=== PATIENT | female | born 1995 | race Caucasian/White ===

== ENCOUNTER 2016-11-05 17:00 | Inpatient (IN) | payer OTHER ==
[~2016-11-05] VITALS: Ht 165.1 cm; Wt 59.0 kg
--- NOTE | ~2016-11-05 | PN ---
Unit #: [id number] #: [id number] Patient: LASHAWN BLOCK [id number] [facility] [address] [place] [address] [id number] MR#: [id number] NAME: LASHAWN BLOCK ROOM: P202 Age: 21 Sex: F Admission Date: 11/05/2016 : 1995 Attending Physician: Alma Garay M.D. Admitting Physician: Alma Garay M.D. Primary Care Physician: Primary Care Physician Gillian PEREZ NOTES DATE OF SERVICE: 11/09/2016 SUBJECTIVE Ms. Block is a 21-year-old white female, who was seen today and chart was reviewed and the case was discussed with the staff. She has been anxious, withdrawn, and rather seclusive to herself. Meanwhile, she has been cooperative with the treatment recommendations and has been taking the medications and tolerating them fairly well. MENTAL STATUS EXAMINATION Young white female, who was casually dressed with fair personal hygiene, appears to be in no acute distress or discomfort. She was awake and alert on interaction with intact orientation. Her mood was anxious with a congruent affect. She denies any suicidal or homicidal ideations. Her insight and judgment remain slightly impaired. TREATMENT PLAN 1. We will continue her on her current medications and treatment protocol. We will monitor her response to the medications and make further adjustments as needed. 2. We will continue to follow up. Dictated by... Ronnie Rojo/molly TD: 11/09/2016 12:44 JOB #: [id number] [facility] PROGRESS NOTES Page 1 of 1 X Alma Garay MD PROGRESS NOTE
--- NOTE | ~2016-11-05 | DS ---
Unit #: [id number] #: [id number] Patient: LASHAWN BLOCK [id number] [facility] [address] [place] [address] [id number] MR#: [id number] NAME: LASHAWN BLOCK ROOM: P202 Age: 21 Sex: F Admission Date: 11/05/2016 : 1995 Discharge Date: 11/10/2016 Attending Physician: Alma Garay M.D. Primary Care Physician: Primary Care Physician No DISCHARGE SUMMARY IDENTIFYING DATA Ms. Block is a 21-year-old white female, with diagnosed with mood disorder and substance abuse who is well known to me from previous multiple encounters who was self-referred to the program. HISTORY OF PRESENT ILLNESS Please see initial psychiatric evaluation for details. PAST PSYCHIATRIC HISTORY Please see initial psychiatric evaluation for details. PAST MEDICAL HISTORY Please see initial psychiatric evaluation for details. HOSPITAL COURSE The patient was admitted to the Adult Chemical Dependency Psychiatric Unit at [facility] shanika Chawla and oriented to the hospital environment. The patient was placed back on her home medications and detox protocol, initiated as well, she was closely monitored. The patient was taking medications and tolerating them fairly well with no reported side effects and showed a therapeutic response and no medication side effects, and was able to come out of the detox without any complications, and was willing to continue treatment on outpatient basis. The patient was discharged home and will continue treatment on an outpatient basis. DISCHARGE DIAGNOSES PSYCHIATRIC: [place] I Bipolar disorder, most recent episode depressed, moderate, recurrent without psychotic features. Opiate dependence, in acute withdrawal. [place] II [place] III None. [place] IV Moderate psychosocial stressors. [place] V CONDITION AT DISCHARGE Stable. PROGNOSIS Fair. Unit #: [id number] #: [id number] Patient: LASHAWN BLOCK Dictated by... Ronnie Rojo/cisco TD: 11/30/2016 11:41 JOB #: [id number] DISCHARGE SUMMARY Page 1 of 1 X Alma Garay MD DISCHARGE SUMMARY
--- NOTE | ~2016-11-05 | PN ---
Unit #: [id number] #: [id number] Patient: LASHAWN BLOCK [id number] [facility] [address] [place] [address] [id number] MR#: [id number] NAME: LASHAWN BLOCK ROOM: P202 Age: 21 Sex: F Admission Date: 11/05/2016 : 1995 Attending Physician: Alma Garay M.D. Admitting Physician: Alma Garay M.D. Primary Care Physician: Primary Care Physician Gillian PEREZ NOTES DATE November 07, 2016 DISCUSSION Ms. Block is a 21-year-old white female, who was seen today and chart was reviewed and the case was discussed with the staff. The patient has been anxious, withdrawn, and rather seclusive to herself and appears to be in distress and discomfort as she has been going through the detox. She has been cooperative with the treatment recommendations, and has been taking the medications and tolerating them fairly well with no reported side effects. MENTAL STATUS EXAMINATION Young white female, who was casually dressed with fair personal hygiene and appears to be in no acute distress or discomfort. She was awake and alert with impaired attention and concentration. Her mood was anxious with a congruent affect. She denies any suicidal or homicidal ideations, and also denies any auditory or visual hallucinations. Her insight and judgment remain slightly impaired. TREATMENT PLAN 1. We will continue her on her current medications and treatment protocol, and will monitor her response to the medications, and make further adjustments as needed. 2. We will continue to followup. Dictated by... Ronnie Rojo/cisco TD: 11/08/2016 08:14 JOB #: [id number] Unit #: [id number] #: [id number] Patient: LASHAWN BLOCK CHRIS NOTES Page 1 of 1 X Alma Garay MD PROGRESS NOTE
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
--- NOTE | ~2016-11-05 | PN ---
Unit #: [id number] #: [id number] Patient: LASHAWN BLOCK [id number] [facility] [address] [place] [address] [id number] MR#: [id number] NAME: LASHAWN BLOCK ROOM: P202 Age: 21 Sex: F Admission Date: 11/05/2016 : 1995 Attending Physician: Alma Garay M.D. Admitting Physician: Alma Garay M.D. Primary Care Physician: Primary Care Physician Gillian RIVERS PROGRESS NOTES DATE 11/08/2016 DISCUSSION Ms. Block is a 21-year-old white female who was seen today and chart was reviewed and case was discussed with the staff. She has been anxious, withdrawn and rather seclusive to herself. Meanwhile, she has been cooperative with treatment recommendations and has been taking the medications and tolerating them fairly well with no reported side effects. MENTAL STATUS EXAMINATION Young white female who was casually dressed with fair personal hygiene and appears to be in no acute distress or discomfort. She was awake and alert with impaired attention and concentration. Her mood was anxious with congruent affect. She denies any suicidal or homicidal ideations. Her insight and judgement remains slightly impaired. TREATMENT PLAN 1. Will continue on current treatment protocol. Will monitor her response to the medications and make further adjustments as needed. 2. Will continue to follow up. Dictated by... Ronnie Rojo/nicholas TD: 11/08/2016 22:27 JOB #: [id number] Unit #: [id number] #: [id number] Patient: LASHAWN BLOCK PROGRESS NOTES Page 1 of 1 X Alma Garay MD PROGRESS NOTE
[~2016-11-05 17:00] MED LIST: BACTRIM DS TABL1 TA1 PO; LORTAB 101 TAB 10/5 PO; VOLTAREN50 MG PO
[2016-11-07 09:50] LABS: BASOPHIL% 0.5 % (0-2.5); EOSINOPHIL# 0.2 X10e3 (0-0.7); EOSINOPHIL% 3.2 % (0.0-7.0); HEMATOCRIT 41.8 % (35.0-45.0); HEMOGLOBIN 13.9 gm/dL (12.0-16.0); LYMPHOCYTE# 2.7 X10e3 (1.0-3.5); LYMPHOCYTE% 50.1 % (17.0-45.0); MEAN CELL VOLUME 91.5 FL (83-96); MEAN CORPUSCULAR HEMOGLOBIN 30.3 PG (28-34); MEAN CORPUSCULAR HGB CONC 33.2 g/dL (30-36); MEAN PLATELET VOLUME 9.4 FL (6.5-11.5); MONOCYTE# 0.4 X10e3 (0-1.0); MONOCYTE% 7.6 % (3.0-12.0); NEUTROPHIL# 2.1 X10e3 (1.5-7.1); NEUTROPHIL% 38.6 % (40-75); PLATELET COUNT 207 X10e3 (140-420); RED BLOOD COUNT 4.57 X10e (3.90-5.30); RED CELL DISTRIBUTION WIDTH 14.2 % (11.0-15.5); WHITE BLOOD COUNT 5.3 X10e3 (4.0-10.5)
[2016-11-07 09:55] LABS: DIFF IND YES
[2016-11-07 10:41] LABS: ALBUMIN SERUM 3.9 g/dL (3.5-5.0); BILIRUBIN,TOTAL 0.8 mg/dL (0.2-2.0); BUN/CREATININE RATIO 15.71; CALCIUM SERUM 9.4 mg/dL (8.4-10.2); CREATININE SERUM 0.7 mg/dL (0.6-1.4); GLOM FILT RATE Estimated 123.9 mL/min (>60); POTASSIUM 4.2 mmol/L (3.5-5.1); PROTEIN TOTAL SERUM 6.8 g/dL (6.0-8.3)
[2016-11-07 11:17] LABS: ANISOCYTOSIS SL; PLATELET ESTIMATE NORMAL (NORMAL)
[2016-11-07 12:41] LABS: URINE APPEARANCE CLEAR; URINE BILIRUBIN NEG (NEG); URINE BLOOD NEG (NEG); URINE COLOR YELLOW; URINE GLUCOSE NEG (NEG); URINE KETONE NEG (NEG); URINE LEUKOCYTE ESTERASE NEG (NEG); URINE NITRATE NEG (NEG); URINE PH 7.5 (5-8); URINE PROTEIN NEG (NEG); URINE SPECIFIC GRAVITY 1.006 (1.003-1.035); URINE UROBILINOGEN 0.2 MG/DL (NEG)
[2016-11-07 13:22] LABS: AMPHETAMINE NEG (NEG); BARBITURATES NEG (NEG); BENZODIAZEPINES NEG (NEG); COCAINE NEG (NEG); MARIJUANA NEG (NEG); OPIATES NEG (NEG); TRICYCLIC ANTIDEPRESSANTS NEG (NEG); U METHADONE NEG (NEG)
== END 2016-11-10 10:39 | DRG 885 ==
LOC: P2S 19:37
PROVIDERS: Psychiatry & Neurology Psychiatry
PROC: HZ2ZZZZ Detoxification Services for Substance Abuse Treatment (ICD-10-PCS; principal; 2016-11-05)
DX: F31.32 Bipolar disorder, current episode depressed, moderate (principal); F11.23 Opioid dependence with withdrawal; F17.200 Nicotine dependence, unspecified, uncomplicated
CPT/HCPCS: 80053; 80307; 81003; 84703; 85025; 86592